=== PATIENT | male | born 1995 | race African-American/Black ===

== ENCOUNTER 2020-05-16 10:03 | Emergency (ER) | payer MEDICAID, SELFPAY ==
[~2020-05-16] VITALS: Ht 190.5 cm; Wt 81.6 kg
[~2020-05-16 10:03] MED LIST: NKM
[2020-05-16] MEDS ORDERED: Morphine Sulfate 4mg/ml Inj (IV USE ONLY) IVP ONE (10:15)
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
[2020-05-16 10:24] LABS: BASOPHILS % (AUTO) 1.6 % (0.0-2.0); HEMATOCRIT 48.9 % (42.0-52.0); HEMOGLOBIN 16.4 G/DL (14.2-18.0); LYMPHOCYTES % (AUTO) 41.7 % (20.0-45.0); MEAN CORPUSCULAR VOLUME 93 FL (80-99); MONOCYTES % (AUTO) 6.1 % (1.0-10.0); NEUTROPHILS % (AUTO) 48.6 % (45.0-75.0); PLATELET COUNT 211 K/UL (150-450); RED BLOOD COUNT 5.25 M/UL (4.70-6.10); RED CELL DISTRIBUTION WIDTH 12.8 % (11.6-14.8); WHITE BLOOD COUNT 9.4 K/UL (4.8-10.8)
[2020-05-16 10:25] VITALS: BP 144/72
[2020-05-16 10:36] LABS: ANION GAP 23 mmol/L (5-15); BLOOD UREA NITROGEN 20 mg/dL (7-18); CALCIUM 9.7 MG/DL (8.5-10.1); CARBON DIOXIDE 14 MMOL/L (21-32); CHLORIDE 106 MMOL/L (98-107); CREATININE 1.4 MG/DL (0.55-1.30); SODIUM 143 MMOL/L (136-145)
[2020-05-16 10:40] LABS: ALANINE AMINOTRANSFERASE 59 U/L (12-78); ALBUMIN 4.7 G/DL (3.4-5.0); ALBUMIN/GLOBULIN RATIO 1.2 (1.0-2.7); ALKALINE PHOSPHATASE 98 U/L (46-116); ASPARTATE AMINO TRANSFERASE 27 U/L (15-37); BILIRUBIN,TOTAL 0.7 MG/DL (0.2-1.0)
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
--- NOTE | 2020-05-16 11:05 | NUR ---
pt is setup and prepped for moderate sedation for left shoulder reduction at this time. consent is signed, time out completed bY Dr. Aleman, suction set up with ambu bag and code cart. Beginning VS AT 1105 153/71 , 18, 98%RA, 96. 100MG OF Diprivan given at this time. 1110VS 169/108, 100%3L, 15, 93 150MG OF DIPRIVAN given at this time. 1110 VS 69, 18, 100%RA, 128/75. 1120 VS 133/75, 100% RA, 18, 85. END OF sedation at 1125. pt is awake and answers all question appriopiately, shoulder immobilzer placed at this time. VS at 1125 131/76, 81, 18, 100% RA. RT, RN, , TECH present during this sedation, no complications noted at this time. will continue to monitor.
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
--- NOTE | 2020-05-16 12:21 | NUR ---
pt called RN into and states wanting to leave. pt able to answer all questions appriopiately. per ED provider, pt can leave signing AMA form. pt educated on risk of leaving against medical advice, pt able to ambulate at time of departure.
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
== END 2020-05-16 12:23 | disposition left against medical advice (07) ==
LOC: EMR 10:14
DX: S43.005A Unspecified dislocation of left shoulder joint, initial encounter (principal); Y08.89XA Assault by other specified means, initial encounter; Y93.9 Activity, unspecified; Y92.9 Unspecified place or not applicable
CPT/HCPCS: 23655; 36415; 73020; 73030; 80053; 83735; 85025; 85610; 85730; 86850; 86900; 86901; 96361; 96374; 96375; 96376; J2270; J2704; J7030; Z7502; 99284